=== PATIENT | male | born 1960 | race Caucasian/White ===

== ENCOUNTER 2017-11-24 21:32 | Emergency (ER) | payer BC ==
[~2017-11-24] VITALS: Ht 175.3 cm; Wt 70.3 kg
[~2017-11-24 21:32] MED LIST: CYCLOBENZAPRINE5 MG PO; IBUPROFEN 800800 M1 PO; NOHOMEMEDICATIONS
[2017-11-24 22:39] VITALS: BP 119/72
== END 2017-11-24 22:42 | disposition home or self-care (01) ==
LOC: M.ERS 21:32
DX: S61.411A Laceration without foreign body of right hand, initial encounter (principal); I10 Essential (primary) hypertension; F17.210 Nicotine dependence, cigarettes, uncomplicated; Z88.0 Allergy status to penicillin; X58.XXXA Exposure to other specified factors, initial encounter; Y93.89 Activity, other specified; Y92.89 Other specified places as the place of occurrence of the external cause; Y99.8 Other external cause status